=== PATIENT | female | born 1995 | race Caucasian/White ===

== ENCOUNTER 2019-08-20 04:30 | Emergency (ER) | payer BC, OTHER ==
[~2019-08-20] VITALS: Ht 172.7 cm; Wt 122.5 kg
[2019-08-20] MEDS ORDERED: LEVO-T100 MCG PO (04:44)
[2019-08-20 05:22] LABS: INFLUENZA A ANTIGEN Negative (Negative); INFLUENZA B ANTIGEN Negative (Negative)
[2019-08-20 05:27] LABS: ABSOLUTE BASOPHILS 0.1 thou/uL (0.0-0.2); ABSOLUTE LYMPHOCYTES 2.5 thou/uL (0.8-5.3); ABSOLUTE MONOCYTES 0.9 thou/uL (0.0-1.2); BASOPHILS 0.5 %; EOSINOPHILS 0.2 %; HEMOGLOBIN 9.6 gm/dL (12.0-15.0); LYMPHOCYTES 21.7 %; MCH 25.3 pg (26.0-34.0); MCHC 33.1 g/dL (28.0-37.0); MCV 76.6 fL (80.0-100.0); MONOCYTES 7.8 %; MPV 7.9 fl. (7.2-11.1); NUCLEATED RBCS 0 /100WBC; PLATELET COUNT* 359 thou/uL (150-400); POLYS 69.8 %; RBC 3.79 mil/uL (4.20-5.00); RDW-CV 16.4 % (10.5-14.5); WBC 11.4 thou/uL (4.0-11.0)
[2019-08-20 05:29] LABS: URINE BILIRUBIN NEGATIVE (Negative); URINE BLOOD 3+ (Negative); URINE CLARITY CLEAR; URINE COLOR YELLOW; URINE GLUCOSE-RANDOM NEGATIVE (Negative); URINE KETONES 1+ (Negative); URINE LEUKOCYTES-REFLEX TRACE (Negative); URINE PROTEIN 1+ (Negative); URINE SPECIFIC GRAVITY 1.025 (1.005-1.030); URINE UROBILINOGEN >= 8.0 E.U./dl (0.2-1.0)
[2019-08-20 05:31] LABS: URINE NITRITE-REFLEX POSITIVE (Negative)
[2019-08-20 05:38] LABS: SQUAMOUS 0-3 Few /LPF (0-3); URINE WBC-REFLEX 0-5 Rare /HPF (0-5)
[2019-08-20 05:39] LABS: BACTERIA-REFLEX >30 Many /HPF (None Seen); CASTS None Seen /LPF (None Seen); CRYSTALS None Seen /LPF (None Seen); MUCUS 0-3 Light strn/LPF (None Seen); URINE RBC 3-10 Few /HPF (0-2)
[2019-08-20 05:50] LABS: ALBUMIN 3.3 g/dL (3.4-5.0); CALCIUM 8.7 mg/dL (8.5-10.1); POTASSIUM 3.6 mmol/L (3.5-5.1); TOTAL BILIRUBIN 0.3 mg/dL (<0.1-1.0)
[2019-08-20] MEDS ORDERED: FLEXERIL PO (06:30)
[2019-08-20] MEDS ORDERED: BUTALB-APAP-CA1 EACH PO (06:30)
[2019-08-20] MEDS ORDERED: KEFLEX500 M2 PO (06:38)
[2019-08-20 06:51] VITALS: BP 119/69
== END 2019-08-20 06:54 | disposition home or self-care (01) ==
LOC: M.ERS 04:30
PROVIDERS: Emergency Medicine
DX: K59.00 Constipation, unspecified (principal); N39.0 Urinary tract infection, site not specified; Z90.89 Acquired absence of other organs; Z85.850 Personal history of malignant neoplasm of thyroid; Z98.890 Other specified postprocedural states

== ENCOUNTER 2020-08-19 09:50 | Emergency (ER) | payer BC ==
[~2020-08-19] VITALS: Ht 170.2 cm; Wt 126.1 kg
[~2020-08-19 09:50] MED LIST: BUTALB-APAP-CA1 EACH PO; FLEXERIL PO; KEFLEX500 M2 PO; LEVO-T100 MCG PO
[2020-08-19 10:42] LABS: URINE BILIRUBIN NEGATIVE (Negative); URINE BLOOD 1+ (Negative); URINE CLARITY CLEAR; URINE COLOR YELLOW; URINE GLUCOSE-RANDOM NEGATIVE (Negative); URINE KETONES TRACE (Negative); URINE LEUKOCYTES-REFLEX TRACE (Negative); URINE PROTEIN NEGATIVE (Negative); URINE SPECIFIC GRAVITY >= 1.030 (1.005-1.030); URINE UROBILINOGEN 0.2 E.U./dl (0.2-1.0)
[2020-08-19 10:43] LABS: URINE NITRITE-REFLEX POSITIVE (Negative)
[2020-08-19 10:50] LABS: CASTS None Seen /LPF (None Seen); CRYSTALS None Seen /LPF (None Seen); MUCUS 4-6 Moderate strn/LPF (None Seen); SQUAMOUS >10 Many /LPF (0-3); URINE RBC 3-10 Few /HPF (0-2); URINE WBC-REFLEX 6-15 Few /HPF (0-5)
[2020-08-19] MEDS ORDERED: KEFLEX500 M1 PO (11:08)
[2020-08-19] MEDS ORDERED: ONDANSETRON ODT4 MG PO (11:08)
[2020-08-19 11:11] LABS: INFLUENZA A ANTIGEN Negative (Negative); INFLUENZA B ANTIGEN Negative (Negative)
[2020-08-19] MEDS ORDERED: APAP W/CODEINE1 TA2 PO (11:28)
[2020-08-19 11:40] VITALS: BP 120/66
== END 2020-08-19 11:43 | disposition still patient (30) ==
LOC: M.ERS 09:50
PROVIDERS: Physician Assistant
DX: U07.1 COVID-19 (principal); N39.0 Urinary tract infection, site not specified; Z79.899 Other long term (current) drug therapy; Z85.850 Personal history of malignant neoplasm of thyroid

== ENCOUNTER 2021-02-16 12:09 | Emergency (ER) | payer BC ==
[~2021-02-16] VITALS: Ht 170.2 cm; Wt 123.8 kg
[~2021-02-16 12:09] MED LIST changes: +APAP W/CODEINE1 TA2 PO; +KEFLEX500 M1 PO; +ONDANSETRON ODT4 MG PO
[2021-02-16 12:20] VITALS: BP 123/65
== END 2021-02-16 12:21 | disposition left against medical advice (07) ==
LOC: M.ERS 12:09
DX: Z53.21 Procedure and treatment not carried out due to patient leaving prior to being seen by health care provider (principal)